=== PATIENT | female | born 1975 | race Caucasian/White ===

== ENCOUNTER 2016-12-28 00:37 | Observation (INO) | payer MEDICARE, OTHER ==
--- NOTE | ~2016-12-28 | DS ---
Discharge Summary [facility] [address] [facility], [place]. [address] NAME: DUSTIN BECKMAN : 77 STATUS : DIS Kena PAT#: [id number] AGE: 41 ADM/REG DATE : 12/28/16 MR#: [id number] REPORT SERV DATE: 12/30/16 DICTATED BY: JANNIE CARPIO DATE: 12/30/16 REPORT STATUS : Draft TRANSCRIBED BY: MODL DATE: 12/30/16 ADMISSION DATE: 12/28/2016 DISCHARGE DATE: 12/30/2016 PRINCIPAL DIAGNOSIS: Chest pain due to acute esophagitis. SECONDARY DIAGNOSES: 1. Type 2 diabetes, uncontrolled. 2. Urinary tract infection due to Staphylococcus saprophyticus. 3. Chronic opioid dependence. 4. Prlqoep-Gxnty-Xxrmd disease. 5. Functional paraplegia. 6. Hypertension. HISTORY OF PRESENT ILLNESS: Please see Dr. Cline's dictation from 12/28/2016. HOSPITAL COURSE: Admitted with chest pain. Given her diabetes, ischemic evaluation was done which was found to be negative. The patient was noted, however, to have a history of esophagitis with an episodic dysphagia. She was treated symptomatically with GI cocktail with improvement in symptoms. She was re-prescribed Carafate to go along with Protonix 40 b.i.d., which she had been on for a long time before changing to Dexilant about a month back. Her opioids were continued, continue Adderall and Xanax, although recommendation was to reduce these various medications particularly being on stimulants and sedatives simultaneously was particularly hazardous, and we recommend that her primary care provider, Avani Olivas, re-evaluate the use of these medicines in the outpatient setting. She will also follow up with Dr. Vasquez as scheduled for followup of here esophagitis. Greater than 30 minutes spent with the patient on discharge planning on the discharge day. LELA/LIVIA Jannie Carpio M.D. / [id number] CC: Colton Montoya M.D.
--- NOTE | ~2016-12-28 | HP ---
History And Physical [id number] [place]. [address] NAME: DUSTIN BECKMAN : 77 STATUS : ADM Kena PAT#: [id number] AGE: 41 ADM/REG DATE : 12/28/16 MR#: [id number] REPORT SERV DATE: 12/28/16 DICTATED BY: HERSON GONZALEZ DATE: 12/28/16 REPORT STATUS : Draft TRANSCRIBED BY: MODL DATE: 12/28/16 DATE OF ADMISSION: 12/28/2016 CHIEF COMPLAINT: Chest pain. Transferred from [facility]. HISTORY OF PRESENT ILLNESS: The patient is a 41-year-old female with past medical history of Rleopju-Mholp-Nxdqo, morbid obesity, achalasia, dysphagia with multiple esophageal dilatations, prior chest pain, seen by Dr. Keenan and Dr. Ruiz, chronic narcotic dependence, and insulin-dependent diabetes type 2, who presented to outside facility with chest pain. The patient reports that symptoms of chest pain became pressure, midsternal earlier today. Symptom of pain was mild to moderate, slightly different than when she usually has her esophageal-type pain, had mild radiation to left side, but not to arm, lasted for multiple hours. The patient has also been recovering from bronchitis, which she has been on Augmentin, then changed to Levaquin as the patient was being treated for UTI also for chronic Douglas, has also been on Macrobid and then changed to Cipro, but has not started Cipro. The patient denies any nausea, vomiting, fevers, but has had difficulty with UTI with hematuria. Douglas was changed on , 12/24, per records. There is nothing that has been making the chest pain better or worse. Symptoms are quite improved currently. The patient's major concern right now is additionally back pain that she has chronically. Additional 10-point review of systems negative for that noted in the HPI. PAST MEDICAL HISTORY: Hypertension, migraines, insulin-dependant diabetes, ulcers, dilatation, spine surgeries, MRSA, ADHD, morbid obesity, Yefhzsa-Uycko-Ppyjg, hiatal hernia, anxiety, depression, chronic tobacco use, still currently using 2 packs per day. PAST SURGICAL HISTORY: Tonsils, spine surgeries, multiple cholecystectomy, bilateral foot surgeries, esophageal dilatations. FAMILY HISTORY: Diabetes, coronary artery disease. SOCIAL HISTORY: Has been ranging from 4 pack per day down as low as 1-pack per day smoker. Currently, 2 pack per day smoker, lives with , on chronic narcotics, wheelchair bound. ALLERGIES: TORADOL, CEPHALOSPORIN, SULFA, PONTOCAINE, CODEINE, DARVOCET, CEPHALEXIN, TETRACYCLINE, DOXYCYCLINE, ERYTHROMYCIN, VANTIN, TRAMADOL, SEROQUEL, MORPHINE, IBUPROFEN, VANCOMYCIN. HOME MEDICATIONS: ProAir, Xanax, Adderall, Abilify, Zyrtec, Plavix, Dexilant, Lofibra, Neurontin, Levemir, insulin, Combivent, Singulair, Bystolic, Paxil, Phenergan, Zantac, Zocor, temazepam, Zanaflex, Topamax. PHYSICAL EXAMINATION: VITAL SIGNS: Blood pressure 118/79, O2 sats 97%, temperature 98.5, pulse 94, respirations 14. GENERAL: Obese, appears older than stated age. Does have facial flushing. History And Physical [address] [address] NAME: DUSTIN BECKMAN : 77 STATUS : ADM Kena PAT#: [id number] AGE: 41 ADM/REG DATE : 12/28/16 MR#: [id number] REPORT SERV DATE: 12/28/16 DICTATED BY: HERSON GONZALEZ DATE: 12/28/16 REPORT STATUS : Draft TRANSCRIBED BY: LIVIA DATE: 12/28/16 HEENT: Head normocephalic, atraumatic. Eyes: No scleral icterus. EOMI. ENT nares patent. Tongue midline. No pharyngeal erythema. NECK: Large neck without JVD. CHEST: Equal chest expansion. RESPIRATORY: Clear to auscultation. No wheezes or rales. CV: Regular rate. No rubs or gallops. Chronic pedal edema in bilateral extremities. Capillary refill less than 2 seconds. No JVD. ABDOMEN: Soft, nontender. Central obesity. Bowel sounds positive. : Douglas. MUSCULOSKELETAL: Does move all extremities, but as per prior, does have right-sided weakness greater than left with chronic venous stasis bilaterally. NEURO: Slightly symmetrical strength, appears equal at this time. Symmetrical vocal leighann. Symmetrical smile. PSYCH: Appropriate mood and affect. SKIN: Warm and dry. Does have facial flushing. LABORATORY DATA: Labs from outside facility, CPK 47, sodium 133, glucose 230, creatinine 0.5. LFTs within normal limits. Bicarb 23, troponin negative. CK-MB 2. WBC 15.7, H and H 12.6 and 38, MCV 84.7, platelets 335. UA moderate leuk esterase with WBCs 10 to 25, 1+ bacteria. X-ray: No cardiopulmonary disease. EKG: Normal sinus rhythm with inferior changes, rate of 99, QTc 449. Inferior changes have also been noted in our prior record with prior records also noted for low voltage QRS. ASSESSMENT AND PLAN: 1. Chest pain. 2. Urinary tract infection with chronic Douglas. 3. Recent bronchitis. 4. Chronic pain. 5. Ympdsju-Xyaqo-Tkvwq. 6. Diabetes type 2. 7. Hypertension. PLAN: 1. For chest pain, stress test. Does have inferior changes, questionable Q-waves, but these have somewhat comparable to prior EKG noted on 05/13/2016. The patient reports the quality of pain is slightly different although slightly atypical for cardiac due to prolongation, but has had a followup with Dr. Keenan and Joseph in the past. We will rule out with troponins which are currently negative, CPK has been within normal limits, repeat troponins and monitor, likely possible post bronchitis type discomfort. We will also provide ICS if required, may require Cardiology for further evaluation. 2. Urinary tract infection with chronic Douglas. Zosyn with prior Pseudomonas positive has been on unfortunately Augmentin for bronchitis and was changed to Levaquin for urinary tract infection 750, then decrease to 500 mg dose, and then placed on Macrobid, and finally was changed to ciprofloxacin, unclear pattern of medication changes, but still has symptoms of hematuria and leukocytosis from outside records. We will confirm and begin Zosyn possible and monitor clinically. 3. Recent bronchitis, treated, on both Augmentin and Levaquin. No signs of acute changes History And Physical [address] [address] NAME: DUSTIN BECKMAN : 77 STATUS : ADM Kena PAT#: [id number] AGE: 41 ADM/REG DATE : 12/28/16 MR#: [id number] REPORT SERV DATE: 12/28/16 DICTATED BY: HERSON GONZALEZ DATE: 12/28/16 REPORT STATUS : Draft TRANSCRIBED BY: LIVIA DATE: 12/28/16 or acute decompensation. 4. Chronic pain. Dilaudid. 5. Jdoerpc-Pdohz-Qmxqt. Continue supportive treatment. 6. Wheelchair dependent. 7. Diabetes type 2. Decrease dose tonight and reassess diabetic insulin needs. 8. Hypertension. Continue medications. Monitor as the patient is normotensive at this time. DDN/LIVIA Herson Gonzalez MD / [id number]
[~2016-12-28 00:37] MED LIST: ABILIFY15 PO; ABILIFY20 MG PO; ADDER10 PO; ADDERALL20 MG PO; ADDERALL30 MG PO; ALOE VESTA TOP; BENADRYL 50 MG50 MG PO; BYSTOLIC10 MG PO; CARASPUDL PO; CLEOCIN300 MG PO; COMBIVENT RESPIM4 GM INH; COZ50 PO; DIL2TAB PO; DIL4TAB PO; DURA75 TOP; EFFEXOR100 MG PO; EFFEXXR75 PO; EXCEDRIN EXTRA1 EACH PO; EXCEDRIN PO; FIORICET PO; FLUCON150 PO; GLUCPH PO; HUMALOG SC; LEVEMFLXPN SC; LEVEMIR SC; LOFIBRA160 MG PO; LYRICA50 PO; LYRICA75 PO; MEP50TAB PO; MYRBETRIQ50 MG PO; NEUR300 PO; NEUR600 PO; NEUR800 PO; NORCO1 TA1 PO; NOVOLOG SC; PAX20 PO; PAXIL30 MG PO; PAXIL40 MG PO; PCET PO; PEP20 PO; PERCOCET1 TA4 PO; POT GLUCONAT595 M1 PO; POTASSIUM GLUCONATE PO; PR25 PO; PROAIR HFA INH; PROTONIX PO; PROZ10 PO; RANITIDINE300 MG PO; RELA5 PO; RESTORIL30 MG PO; SINGULAIR1 PO; TOPAMAX100 PO; TOPXL25 PO; TOPXL50 PO; TRICOR145 PO; VALIUM10 MG PO; VISINE-A EYE AL15 ML OPH; XANAX2 MG PO; ZANAFLEX 4 MG TA4 MG PO; ZANTAC300 MG PO; ZOCOR20 PO; ZOFRAN4 PO; ZYRTEC ALLGY10 MG PO
[2016-12-28] MEDS ORDERED: KAPIDEX30 MG PO (01:16)
[2016-12-28] MEDS ORDERED: PLAVIX PO (01:54)
[2016-12-28 05:04] LABS: BASOPHILS 0.4 %; BASOPHILS ABSOLUTE 0.05 10/3/uL (0.0-0.16); EOSINOPHILS ABSOLUTE 0.35 10/3/uL (0.0-0.53); HEMATOCRIT 38.4 % (36.0-48.0); HEMOGLOBIN 12.6 g/dL (12.0-16.0); IMMATURE GRANULOCYTES 1.1 %; IMMATURE GRANULOCYTES ABSOLUTE 0.13 10/3/uL (0.0-0.11); LYMPHOCYTES 21.3 %; LYMPHOCYTES ABSOLUTE 2.52 10/3/uL (0.67-4.30); MEAN CORPUS HGB CONC 32.8 g/dL (32.0-36.0); MEAN CORPUSCULAR HEMOGLOB 28.5 pg (26.0-34.0); MEAN CORPUSCULAR VOLUME 86.9 fL (80-100); MEAN PLATELET VOLUME 9.8 fL (9.2-13.0); MONOCYTES 5.9 %; NEUTROPHILS 68.3 %; NEUTROPHILS ABSOLUTE 8.06 10/3/uL (2.02-8.40); PLATELET COUNT 362 10/3/uL (150-400); RBC DISTRIBUTION WIDTH 15.8 % (12.0-16.0); RED CELL COUNT 4.42 10/6/uL (4.0-5.6); WHITE BLOOD CELLS 11.8 10/3/uL (4.5-10.5)
[2016-12-28 05:10] LABS: MANUAL DIFF NO %
[2016-12-28 05:23] LABS: A/G RATIO 0.9 (0.7-1.9); ALBUMIN 3.3 G/DL (3.5-5.0); ALKALINE PHOSPHATASE 73 U/L (45-117); CALCIUM, SERUM 8.8 MG/DL (8.5-10.4); CHLORIDE, SERUM 103 MMOL/L (96-112); CO2 (CARBON DIOXIDE) 24 MMOL/L (24-34); CREATININE 0.68 MG/DL (0.55-1.02); GFR AFRICAN AMERICAN 127 ML/MIN (>=60); GFR NON AFRICAN AMERICAN 109 ML/MIN (>=60); GLOBULIN 3.8 G/DL (2.5-4.1); PHOSPHORUS, SERUM 3.1 MG/DL (2.5-4.5); POTASSIUM, SERUM 3.7 MMOL/L (3.5-5.3); SGOT(AST) 46 U/L (5-40); SGPT(ALT) 23 U/L (5-65); SODIUM, SERUM 138 MMOL/L (135-148); TOTAL BILIRUBIN 0.7 MG/DL (0-1.2); TOTAL PROTEIN 7.1 G/DL (6.0-8.5); TROPONIN I <0.02 NG/ML (<0.05)
[2016-12-28 05:24] LABS: BUN (BLOOD UREA NITROGEN) 20 MG/DL (6-23); GLUCOSE, SERUM 195 MG/DL (60-99)
[2016-12-28 06:29] LABS: PROCALCITONIN 0.57 ng/mL (<0.5)
[2016-12-28 09:42] LABS: ASCORBIC ACID (UR NOT ORDER) NEG (NEG); BILIRUBIN, URINE NEGATIVE (NEG); KETONE, URINE NEGATIVE (NEG); LEUKOCYTE ESTERASE(NOT OR MOD (NEG)
[2016-12-28 09:43] LABS: WBC (NOT ORDERED) (RFLEX) > 182 (0-5)
[2016-12-29 12:58] LABS: HEMATOCRIT 35.6 % (36.0-48.0); HEMOGLOBIN 11.3 g/dL (12.0-16.0); MEAN CORPUS HGB CONC 31.7 g/dL (32.0-36.0); MEAN CORPUSCULAR VOLUME 88.1 fL (80-100); MEAN PLATELET VOLUME 9.8 fL (9.2-13.0); PLATELET COUNT 276 10/3/uL (150-400); RBC DISTRIBUTION WIDTH 16.3 % (12.0-16.0); RED CELL COUNT 4.04 10/6/uL (4.0-5.6); WHITE BLOOD CELLS 11.6 10/3/uL (4.5-10.5)
[2016-12-29 13:00] LABS: MANUAL DIFF YES %
[2016-12-29 13:14] LABS: BUN (BLOOD UREA NITROGEN) 18 MG/DL (6-23); CALCIUM, SERUM 8.4 MG/DL (8.5-10.4); CHLORIDE, SERUM 109 MMOL/L (96-112); CO2 (CARBON DIOXIDE) 21 MMOL/L (24-34); CREATININE 0.58 MG/DL (0.55-1.02); GFR AFRICAN AMERICAN 134 ML/MIN (>=60); GFR NON AFRICAN AMERICAN 115 ML/MIN (>=60); GLUCOSE, SERUM 233 MG/DL (60-99); SODIUM, SERUM 141 MMOL/L (135-148)
[2016-12-29 13:18] LABS: POTASSIUM, SERUM 4.5 MMOL/L (3.5-5.3)
[2016-12-29 13:27] LABS: BAND NEUTROPHILS 10 %; EOSINOPHILS 3 %; EOSINOPHILS ABSOLUTE (CALC) 0.35 10/3/uL (0.0-0.53); HYPOCHROMIA 1+ (3-10/OIF) (0-2/OIF); IMMATURE GRANS ABSOLUTE (CALC) 0.23 10/3/uL (0.0-0.11); LYMPHOCYTES 16 %; LYMPHOCYTES ABSOLUTE (CALC) 1.86 10/3/uL (0.67-4.30); METAMYELOCYTES 2 %; MONOCYTES 6 %; NEUTROPHILS ABSOLUTE (CALC) 8.47 10/3/uL (2.02-8.40); PLATELET ESTIMATE ADQ (ADEQUATE); SEGMENTED NEUTROPHIL (0) 63 %; TOTAL NUCLEATED CELLS 100
[2016-12-30 12:44] LABS: BASOPHILS 0.4 %; BASOPHILS ABSOLUTE 0.05 10/3/uL (0.0-0.16); EOSINOPHILS 2.9 %; EOSINOPHILS ABSOLUTE 0.33 10/3/uL (0.0-0.53); HEMATOCRIT 33.8 % (36.0-48.0); IMMATURE GRANULOCYTES 1.5 %; IMMATURE GRANULOCYTES ABSOLUTE 0.17 10/3/uL (0.0-0.11); LYMPHOCYTES ABSOLUTE 2.04 10/3/uL (0.67-4.30); MEAN CORPUS HGB CONC 32.5 g/dL (32.0-36.0); MEAN CORPUSCULAR HEMOGLOB 28.7 pg (26.0-34.0); MEAN CORPUSCULAR VOLUME 88.3 fL (80-100); MEAN PLATELET VOLUME 9.6 fL (9.2-13.0); MONOCYTES 5.7 %; MONOCYTES ABSOLUTE 0.65 10/3/uL (0.21-1.20); NEUTROPHILS 71.5 %; NEUTROPHILS ABSOLUTE 8.07 10/3/uL (2.02-8.40); PLATELET COUNT 305 10/3/uL (150-400); RED CELL COUNT 3.83 10/6/uL (4.0-5.6); WHITE BLOOD CELLS 11.3 10/3/uL (4.5-10.5)
[2016-12-30 12:47] LABS: MANUAL DIFF NO %
[2016-12-30 12:57] LABS: CALCIUM, SERUM 8.6 MG/DL (8.5-10.4); CHLORIDE, SERUM 107 MMOL/L (96-112); CO2 (CARBON DIOXIDE) 22 MMOL/L (24-34); CREATININE 0.56 MG/DL (0.55-1.02); GFR AFRICAN AMERICAN 135 ML/MIN (>=60); GFR NON AFRICAN AMERICAN 117 ML/MIN (>=60); GLUCOSE, SERUM 210 MG/DL (60-99); PHOSPHORUS, SERUM 3.1 MG/DL (2.5-4.5); SODIUM, SERUM 139 MMOL/L (135-148)
[2016-12-30 12:58] LABS: BUN (BLOOD UREA NITROGEN) 10 MG/DL (6-23); POTASSIUM, SERUM 4.5 MMOL/L (3.5-5.3)
[2016-12-30 13:22] LABS: PROCALCITONIN 0.39 ng/mL (<0.5)
[2016-12-30] MEDS ORDERED: LEVEMIR SC (15:10)
[2016-12-30] MEDS ORDERED: EMLA PO (15:15)
[2016-12-30] MEDS ORDERED: LIDEX PO (15:15)
[2016-12-30] MEDS ORDERED: SUCR PO (15:16)
[2016-12-30] MEDS ORDERED: PROTONIX PO (15:17)
[2017-05-03] MEDS ORDERED: FISH-EPA1000 MG PO (22:14)
[2017-05-03] MEDS ORDERED: PROTONIX PO (22:14)
[2017-05-03] MEDS ORDERED: BYSTOLIC10 MG PO (22:15)
[2017-05-03] MEDS ORDERED: ABILIFY20 MG PO (22:15)
[2017-05-03] MEDS ORDERED: ZANTAC300 MG PO (22:15)
[2017-05-03] MEDS ORDERED: SINGULAIR1 PO (22:15)
[2017-05-03] MEDS ORDERED: PLAVIX PO (22:15)
[2017-05-03] MEDS ORDERED: PAXIL30 MG PO (22:15)
[2017-05-03] MEDS ORDERED: ADDERALL30 MG PO (22:16)
[2017-05-03] MEDS ORDERED: RESTORIL30 MG PO (22:16)
[2017-05-03] MEDS ORDERED: ZOCOR20 PO (22:16)
[2017-05-03] MEDS ORDERED: LOFIB160 PO (22:16)
[2017-05-03] MEDS ORDERED: NEUR800 PO (22:16)
[2017-05-03] MEDS ORDERED: TOPAMAX100 PO (22:17)
[2017-05-03] MEDS ORDERED: XANAX2 MG PO (22:17)
[2017-05-03] MEDS ORDERED: HUMALOG SC (22:17)
[2017-05-03] MEDS ORDERED: POTASSIUM GLUC PO (22:17)
[2017-05-03] MEDS ORDERED: LEVEMIR SC (22:18)
[2017-05-03] MEDS ORDERED: MAXALTODT1 PO (22:18)
[2017-05-03] MEDS ORDERED: DIFLUCAN50 MG PO (22:18)
[2017-05-03] MEDS ORDERED: FIORICET 50-301 EACH PO (22:19)
[2017-05-03] MEDS ORDERED: PR25 PO (22:19)
[2017-05-03] MEDS ORDERED: LEVAQUIN750 MG PO (22:19)
[2017-05-03] MEDS ORDERED: VITD PO (23:32)
[2017-05-10] MEDS ORDERED: OXYCOD PO (12:58)
== END 2016-12-30 15:59 | disposition home or self-care (01) ==
LOC: CDU1 00:37
PROVIDERS: Internal Medicine; Nurse Practitioner
DX: K20.9 Esophagitis, unspecified (principal); N39.0 Urinary tract infection, site not specified; B95.7 Other staphylococcus as the cause of diseases classified elsewhere; J40 Bronchitis, not specified as acute or chronic; G89.29 Other chronic pain; F44.4 Conversion disorder with motor symptom or deficit; E11.40 Type 2 diabetes mellitus with diabetic neuropathy, unspecified; E78.00 Pure hypercholesterolemia, unspecified; J45.909 Unspecified asthma, uncomplicated; J44.9 Chronic obstructive pulmonary disease, unspecified; M19.90 Unspecified osteoarthritis, unspecified site; M79.7 Fibromyalgia; K21.9 Gastro-esophageal reflux disease without esophagitis; F41.9 Anxiety disorder, unspecified; F32.9 Major depressive disorder, single episode, unspecified; D64.9 Anemia, unspecified; I10 Essential (primary) hypertension; Z88.1 Allergy status to other antibiotic agents; Z88.2 Allergy status to sulfonamides; Z88.5 Allergy status to narcotic agent; Z88.8 Allergy status to other drugs, medicaments and biological substances; Z79.4 Long term (current) use of insulin; Z79.899 Other long term (current) drug therapy; Z90.89 Acquired absence of other organs; Z90.49 Acquired absence of other specified parts of digestive tract; Z87.442 Personal history of urinary calculi; Z98.1 Arthrodesis status; Z98.890 Other specified postprocedural states
CPT/HCPCS: 71020; 78452; 80048; 80053; 81001; 82962; 83036; 83735; 84100; 84145; 84443; 84484; 85025; 87040; 87086; 87449; 93005; 93017; 93970; 96372; 96374; 96375; 96376; A9270-GY; A9502; G0378; J0153; J1170; J2543; J2550

== ENCOUNTER 2016-12-31 21:30 | Emergency (ER) | payer MEDICARE ==
[~2016-12-31 21:30] MED LIST changes: +EMLA PO; +KAPIDEX30 MG PO; +LIDEX PO; +PLAVIX PO; +SUCR PO
[2017-05-03] MEDS ORDERED: FISH-EPA1000 MG PO (22:14)
[2017-05-03] MEDS ORDERED: PROTONIX PO (22:14)
[2017-05-03] MEDS ORDERED: ABILIFY20 MG PO (22:15)
[2017-05-03] MEDS ORDERED: SINGULAIR1 PO (22:15)
[2017-05-03] MEDS ORDERED: ZANTAC300 MG PO (22:15)
[2017-05-03] MEDS ORDERED: PLAVIX PO (22:15)
[2017-05-03] MEDS ORDERED: PAXIL30 MG PO (22:15)
[2017-05-03] MEDS ORDERED: BYSTOLIC10 MG PO (22:15)
[2017-05-03] MEDS ORDERED: NEUR800 PO (22:16)
[2017-05-03] MEDS ORDERED: ZOCOR20 PO (22:16)
[2017-05-03] MEDS ORDERED: RESTORIL30 MG PO (22:16)
[2017-05-03] MEDS ORDERED: ADDERALL30 MG PO (22:16)
[2017-05-03] MEDS ORDERED: LOFIB160 PO (22:16)
[2017-05-03] MEDS ORDERED: XANAX2 MG PO (22:17)
[2017-05-03] MEDS ORDERED: POTASSIUM GLUC PO (22:17)
[2017-05-03] MEDS ORDERED: TOPAMAX100 PO (22:17)
[2017-05-03] MEDS ORDERED: HUMALOG SC (22:17)
[2017-05-03] MEDS ORDERED: DIFLUCAN50 MG PO (22:18)
[2017-05-03] MEDS ORDERED: LEVEMIR SC (22:18)
[2017-05-03] MEDS ORDERED: MAXALTODT1 PO (22:18)
[2017-05-03] MEDS ORDERED: PR25 PO (22:19)
[2017-05-03] MEDS ORDERED: FIORICET 50-301 EACH PO (22:19)
[2017-05-03] MEDS ORDERED: LEVAQUIN750 MG PO (22:19)
[2017-05-03] MEDS ORDERED: VITD PO (23:32)
[2017-05-10] MEDS ORDERED: OXYCOD PO (12:58)
== END 2016-12-31 23:10 | disposition left against medical advice (07) ==
LOC: ER 21:30
DX: Z53.21 Procedure and treatment not carried out due to patient leaving prior to being seen by health care provider (principal)
CPT/HCPCS: 80053; 81001; 83690; 84703; 85025

== ENCOUNTER 2017-01-14 02:32 | Inpatient (IN) | payer MEDICARE ==
--- NOTE | ~2017-01-14 | HP ---
History And Physical [address] [place]. [address] NAME: DUSTIN BECKMAN : 77 STATUS : ADM Kena PAT#: [id number] AGE: 41 ADM/REG DATE : 01/14/17 MR#: [id number] REPORT SERV DATE: 01/14/17 DICTATED BY: ADAM SMIHT DATE: 01/14/17 REPORT STATUS : Draft TRANSCRIBED BY: MODL DATE: 01/14/17 DATE OF ADMISSION: 01/14/2017 CHIEF COMPLAINT: I have accepted this patient in transfer from [facility] after speaking with Dr. Caleb Devi there. HISTORY OF PRESENT ILLNESS: Briefly, this is a 41-year-old female, who presented to the emergency room there with redness in both lower extremities. The patient had allergies to almost all antibiotics except daptomycin and had to be seen by an Infectious Disease specialist for that. They were requesting transfer for higher level of care. At the time of my evaluation here, the patient denied any chest pain, palpitations, or orthopnea. She had no cough, hemoptysis, night sweats, or weight loss. She has not had any recent falls or loss of consciousness. No history of fevers, chills, nausea, vomiting, or diarrhea. No history of hematemesis, hematochezia, or hematuria. According to her, about her redness in the lower extremities started about 10 days ago when she saw an unknown doctor who gave her ciprofloxacin. She took it for a few days and had no benefit in fact her leg was getting worse, so she saw her primary doctor who prescribed levofloxacin 750 mg. Again, this did not help and she went to the emergency room again where she was advised to take IV antibiotics. Unfortunately, they could not establish venous access and due to her allergies to almost every known antibiotics we were called to accept the patient in transfer. PAST MEDICAL HISTORY: Significant for insulin-dependent diabetes mellitus. Allergies to all antibiotics and pain medications. History of bipolar disorder, irritable bowel syndrome, Charcot Shannan tooth disease, history of DVT in the right lower extremity in the past. She has obesity, chronic indwelling catheter, functional paraplegia, hypertension, numerous urinary tract infection with Staphylococcus saprophyticus. SOCIAL HISTORY: She has about 50- to 93-ozqg-aorm history of smoking, continues to do so. She denied alcohol use or recreational drug use. She is currently disabled. FAMILY HISTORY: Noncontributory. MEDICATIONS: Her medications at home were reviewed by me in the chart today and reordered by me. REVIEW OF SYSTEMS: As in history of present illness. All other systems were reviewed in detail and are quite unremarkable. PHYSICAL EXAMINATION: GENERAL: This is a pleasant 41-year-old, not in any acute distress at this time. HEENT: Her head is atraumatic and normocephalic. She is alert, awake, oriented to time, place, and person. Pupils are equal, reacting to light and accommodating. External ocular History And Physical [address] [address] NAME: DUSTIN BECKMAN : 77 STATUS : ADM Kena PAT#: [id number] AGE: 41 ADM/REG DATE : 01/14/17 MR#: [id number] REPORT SERV DATE: 01/14/17 DICTATED BY: ADAM SMITH DATE: 01/14/17 REPORT STATUS : Draft TRANSCRIBED BY: LIVIA DATE: 01/14/17 muscles are intact. Membranes are moist and pink. Sclerae are nonicteric. NECK: Supple with no jugular venous distention, lymphadenopathy, or thyromegaly. LUNGS: Clear to auscultation with no wheezes, rubs, or crackles. HEART: Heart sounds were regular with no murmurs, rubs, or gallops. ABDOMEN: Soft and nontender. Bowel sounds are present. EXTREMITIES: No cyanosis, clubbing, or edema. Both her lower extremities especially the feet showed redness and swelling on the dorsum. There is redness in the left leg as well. There is also a small ulcerated area without any discharge in the foot as well. NEUROLOGIC: Grossly intact. No focal sensory or motor deficits. Higher functions appeared intact. Gait was not examined. VITAL SIGNS: Her temperature today was 99 degrees Fahrenheit, heart rate 103, respirations 20 a minute, and blood pressure was 147/71, this was at [place] before her transfer. Here, her temperature was 98.5, pulse 90, respirations 19 a minute, and blood pressure was 124/67. Oxygen saturations were 97%, breathing 2 L of oxygen via nasal cannula. LABORATORY DATA: All other labs and other data which accompanied the patient from there was reviewed by me today. IMPRESSION: 1. Bilateral lower extremity cellulitis. 2. Multiple allergies to medications. 3. Insulin-dependent diabetes mellitus. 4. Essential hypertension. 5. Bipolar disorder. 6. Irritable bowel syndrome. 7. Dohclee-Jfjzw-Icxyj disease. 8. History of DVT in the right lower extremity. 9. Obesity. 10.Chronic indwelling catheter. 11.Functional paraplegia. PLAN: We will admit Ms Beckman to the Hospitalist Service with telemetry for a 24-hour observation period. After cultures are drawn, we will start her on daptomycin and give her the first dose and consult Infectious Disease, who has seen her in the past to evaluate and offer recommendations and treatment. We will start her on NovoLog insulin given subcutaneously per sliding scale for blood sugar control and check her A1c. We will follow chemistry, CBC here along with electrolytes and replace as needed. She will also be placed on unfractionated heparin for DVT prophylaxis while here. Meanwhile, we will continue all her other home medications and treatments. Again for pain, she is allergic to almost all pain medication known except Dilaudid and Stadol which she is requesting. I have discussed the above plans with the patient. Her questions were answered, and she is agreeable to the above recommendations. Hospitalist Service will be following her during her stay here. History And Physical [address] [address] NAME: DUSTIN BECKMAN : 77 STATUS : ADM Kena PAT#: [id number] AGE: 41 ADM/REG DATE : 01/14/17 MR#: [id number] REPORT SERV DATE: 01/14/17 DICTATED BY: ADAM SMITH DATE: 01/14/17 REPORT STATUS : Draft TRANSCRIBED BY: LIVIA DATE: 01/14/17 /LIVIA Adam Smith M.D. / [id number] CC: Colton Barney NP
--- NOTE | ~2017-01-14 | DS ---
Discharge Summary [facility] [address] [place]. [address] NAME: DUSTIN BECKMAN : 77 STATUS : DIS IN PAT#: [id number] AGE: 41 ADM/REG DATE : 01/14/17 MR#: [id number] REPORT SERV DATE: 01/20/17 DICTATED BY: JANNIE CARPIO DATE: 01/19/17 REPORT STATUS : Draft TRANSCRIBED BY: LIVIA DATE: 01/19/17 ADMISSION DATE: 01/14/2017 DISCHARGE DATE: 01/19/2017 PRINCIPAL DIAGNOSIS: Right lower extremity cellulitis. SECONDARY DIAGNOSIS: Fjggggs-Eyvzd-Ueiyl disease with chronic peripheral neuropathy, type 2 diabetes, obesity with sleep apnea, hypertension, chronic pain disorder with history of attention deficit hyperactivity disorder and bipolar. ILLNESS: Please see Dr. Rivera's dictation, 01/14/2017. HOSPITAL COURSE: Please see Dr. Salguero's 01/18/2017. Subsequent hospital course, the patient completed her daptomycin. Her pain medications were changed to p.o. and we reviewed her medications at discharge. The patient was on both stimulants and sedatives, which should only be given with extreme caution. The patient particularly with addition of opiates due to the pain from her cellulitis, she was prescribed oxycodone at discharge and recommended to reduce her Xanax and her Adderall both by 50% and discuss this with Dr. Melgar. She could come off both those medications, it would be optimal for her. Otherwise, her Restoril was discontinued. Continue MiraLAX, Levemir 50 at bedtime, Topamax, Zocor, Lofibra, Abilify, Pepcid, Paxil, Bystolic, Singulair, Plavix, Zanaflex. She will follow up with Dr. Avani Olivas in one to two weeks and Dr. Melgar as previously scheduled. Greater than 30 minutes were spent on the care of this patient on discharge planning on discharge day. LELA/LIVIA Jannie Carpio M.D. / [id number] CC: Jannie Carpio M.D. MD Joseph Corona MD
--- NOTE | ~2017-01-14 | CN ---
Consultation Report [facility] [address] [place]. [address] NAME: DUSTIN BECKMAN : 77 STATUS : ADM Kena PAT#: [id number] AGE: 41 ADM/REG DATE : 01/14/17 MR#: [id number] REPORT SERV DATE: 01/14/17 DICTATED BY: GENARO ALBERTO DATE: 01/14/17 REPORT STATUS : Draft TRANSCRIBED BY: MODLuis Felipe DATE: 01/14/17 INFECTIOUS DISEASE CONSULTATION DATE OF CONSULTATION: REASON FOR CONSULT: Multiple antibiotic allergies and leg cellulitis. HISTORY OF PRESENT ILLNESS: A 41 years old lady with past medical history of Charcot-Shannan- Tooth disease; obesity; achalasia, status post esophageal dilatation; chronic pain; diabetes, who was transferred from [facility] because she cannot take oral antibiotics and I could not start an IV line. She states that she never had leg cellulitis, but she has chronic feet pain. She is electric-chair bound. She does transfer only. She had prior surgeries on her feet. For about 10 days, she had some erythema mostly on the right foot and worse pain than usual. She had no real fever. She has repeated trauma to her feet. Somebody gave her a course of Cipro and then a course of Levaquin that apparently did not help. ALLERGIES: SHE REPORTS VARIOUS ANTIBIOTIC ALLERGIES. SHE STATES THAT CEPHALEXIN, VANTIN, AND SULFA CAUSE RASH AND VANCOMYCIN AND DOXYCYCLINE CAUSED THROAT SWELLING. SHE TOOK DAPTOMYCIN IN THE PAST. SHE REPORTED PENICILLIN ALLERGY, BUT SHE WAS JUST TREATED LAST MONTH WITH ZOSYN HERE AT [facility]. PAST MEDICAL HISTORY: She also has past medical history of hypertension, migraines. PAST SURGICAL HISTORY: Tonsillectomy, spine surgeries, cholecystectomy. SOCIAL HISTORY: Apparently, she is a smoker. She is . FAMILY HISTORY: Diabetes and heart disease. MEDICATIONS ON ADMISSION: Albuterol, Xanax as needed, Adderall, Abilify, Zyrtec, Plavix, fenofibrate, gabapentin, insulin, Combivent, Singulair, nebivolol, Protonix, Paxil, Zantac, Zocor, Carafate, Restoril, Zanaflex, Topamax, and potassium. PHYSICAL EXAMINATION: GENERAL: On exam, she is alert, awake, very obese. Her face is red and kole. HEART: Regular rhythm. ABDOMEN: Very obese, compressible. : Right upper buttock or hip with a couple of bruises. Groins with redness mostly on the left. EXTREMITIES: Both feet are red, more on the right than the left. Right great toe with a tip scab. Mild redness on the right lower leg. Both feet are very sensitive to touch. VITAL SIGNS: She has been afebrile here. Consultation Report [address] [place]. [address] NAME: DUSTIN BECKMAN : 77 STATUS : ADM Kena PAT#: [id number] AGE: 41 ADM/REG DATE : 01/14/17 MR#: [id number] REPORT SERV DATE: 01/14/17 DICTATED BY: GENARO ALBERTO DATE: 01/14/17 REPORT STATUS : Draft TRANSCRIBED BY: LIVIA DATE: 01/14/17 LAB WORK: Procalcitonin 0.2, creatinine 0.4, WBC 8, lactic acid 1.0. Liver enzymes within normal limits. Hemoglobin 11, platelets 327. Glucose high. ASSESSMENT/PLAN: 1. Right foot erythema, mild warmth, and right great toe scab. 2. Chronic bilateral feet pain. 3. She is bound to an electric chair. She does not walk. 4. Dknfaly-Mbdxk-Zjkno disease with prior foot surgeries. 5. Inguinal skin candidiasis. 6. She reports allergies as listed above. She does have some right foot erythema and warmth to touch, but she also has a right face erythema. She states she was not exposed to sun on her feet. She has no fever, no leukocytosis, no elevated procalcitonin. It is not really unclear if this is truly infectious cellulitis. She was started on daptomycin this morning and we will see if there is any response to that. I asked her to keep the legs elevated and to have glycemic control. ID followup intermittently. MARIA ELENA/LIVIA Genaro Alberto M.D. / [id number] CC: Colton Barney RUTH
--- NOTE | ~2017-01-14 | IDS ---
Interim Discharge Summary [facility] [address] [place]. [address] NAME: DUSTIN BECKMAN : 77 STATUS : ADM IN PAT#: [id number] AGE: 41 ADM/REG DATE : 01/14/17 MR#: [id number] REPORT SERV DATE: 01/17/17 DICTATED BY: NESTOR SALGUERO DATE: 01/17/17 REPORT STATUS : Draft TRANSCRIBED BY: MODL DATE: 01/17/17 ADMISSION DATE: 01/14/2017 DISCHARGE DATE: CONSULTANTS: Dr. Genaro Campbell, Infectious Disease. PROBLEM LIST: 1. 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 2. Mild bilateral foot cellulitis. 3. Vhnxsvi-Jiutc-Xcjry disease with chronic severe neuropathy and near paraplegia of her legs and neurogenic bladder. 4. Metabolic encephalopathy related to sedating medication combination. 5. Bipolar disorder with a history of attention deficit hyperactivity disorder and generalized anxiety. 6. Obesity with body mass index 50 with suspected obstructive sleep apnea. 7. Neurogenic bladder with chronic Douglas catheter with yeast colonization. 8. Many medication intolerances. 9. Diabetes mellitus type 2 with A1c 9.3%. 10.History of esophageal stricture. 11.Chronic pain involving spine, peripheral neuropathy, and headaches. 12.History of hypertension. 13.History of multiple spinal infections. HISTORY: This patient has Przxejh-Gaslv-Bihyk disease with chronic peripheral neuropathy and neurogenic bladder and she is nearly paraplegic. She can move her legs very little but they do not bear much weight when she gets out of a chair or out of bed. She will lean on something in front of her and then swing her hips around to get herself into a chair with essentially no weightbearing by the legs. She has had recent falls traumatizing her feet. She had gone to the ER at [facility], [place] complaining of 10 days of bilateral foot pain. She states she had a fever early on of 101 but not since then. PCP had given her Cipro, then Levaquin, no improvement. When she went to [facility], [place], she had no IV access and was sent here, had a PICC line placed. The patient had no increased heat or induration in either foot. She has obesity with chronic stasis changes. Minimal erythema in the distal feet. She had some scabbing of toes, some bruising of her distal foot, especially on the left side. X-rays reviewed with Radiology. They have been taken at an outside facility, [facility]. CT revealed possible mild cellulitis, no fractures, no osteomyelitis. Plain films; no fracture, no erosions, just some osteoporosis. The patient has a normal white count. She has had normal temperature. There has been no elevation of the procalcitonin. She has hypersensitivity to light palpation of the feet on either side. I think it is likely that her bilateral foot pain is a combination of her underlying neuropathy plus the recent falls and trauma to the feet and some mild cellulitis. Interim Discharge Summary [place] [id number] [facility] [place]. [address] NAME: DUSTIN BECKMAN : 77 STATUS : ADM IN [facility]#: [id number] AGE: 41 ADM/REG DATE : 01/14/17 MR#: [id number] REPORT SERV DATE: 01/17/17 DICTATED BY: NESTOR SALGUERO DATE: 01/17/17 REPORT STATUS : Draft TRANSCRIBED BY: LIVIA DATE: 01/17/17 Dr. Campbell has seen her, and he felt she might benefit from a very few days of daptomycin. She has so many allergies, it is difficult to find medicines that she could even take. Blood cultures, no growth. Urine cultures with Desiree albicans. Changed out her Douglas catheter. She states she is not able to do self cath and her 's never been trained. He did not seem interested in learning it either, and was asleep through almost all of my visits except the very first one. The patient was asking for stronger pain medicines. She admits that she used to go to pain management, but she does not have a pain management physician now. She states there is an appointment pending. She states in the past she used to be on fentanyl patch and oral Dilaudid. I told her right upfront that I was very concerned about the combination of her medications being a high risk for over-sedation and respiratory insufficiency, this includes Xanax 2 mg t.i.d. p.r.n. plus Restoril 30 mg at bedtime scheduled, Zanaflex 6 mg t.i.d. scheduled, Topamax 300 mg at bedtime scheduled, Abilify 20 mg at bedtime scheduled, Phenergan 50 mg that she takes four times a day, although it is supposed to be p.r.n. She is also on Paxil 60 mg every morning and Adderall 30 mg twice a day. She states that these medications have been given to her specifically by her psychiatrist, Dr. Evens Melgar, and she was very reluctant to have any adjustment of this. I told her that we had to be extremely cautious with adding any opiates. She states in the past when she was on fentanyl patches and Dilaudid pills, she tapered herself off. So, we started with Roxicodone orally as a p.r.n. for moderate pain and Dilaudid IV for more intense pain. With this, the patient was noted to be overly sedated. It was difficult for nursing to wake her up. I talked to her about that. We stopped the Dilaudid completely. She still continued to be somnolent with difficulty waking her up in the evenings, as well reducing the dose of her Roxicodone. She was somewhat reluctant to have this happen. She wanted me to take away her Restoril or Xanax instead, but I told her that benzo withdrawal was not something that I was interested in risking. I would cut her Restoril out though. We had to increase her insulins here as well. Bilateral venous Doppler shows no evidence of deep vein thrombosis in either leg. RSG/MODL Nestor Salguero M.D. / [id number] CC: Colton Barney RUTH
[2017-01-14 06:49] LABS: BASOPHILS 0.5 %; BASOPHILS ABSOLUTE 0.04 10/3/uL (0.0-0.16); EOSINOPHILS 5.1 %; EOSINOPHILS ABSOLUTE 0.42 10/3/uL (0.0-0.53); HEMATOCRIT 33.9 % (36.0-48.0); HEMOGLOBIN 11.1 g/dL (12.0-16.0); IMMATURE GRANULOCYTES 0.8 %; IMMATURE GRANULOCYTES ABSOLUTE 0.07 10/3/uL (0.0-0.11); LYMPHOCYTES 21.5 %; LYMPHOCYTES ABSOLUTE 1.77 10/3/uL (0.67-4.30); MEAN CORPUS HGB CONC 32.7 g/dL (32.0-36.0); MEAN PLATELET VOLUME 9.4 fL (9.2-13.0); MONOCYTES 4.8 %; NEUTROPHILS 67.3 %; NEUTROPHILS ABSOLUTE 5.55 10/3/uL (2.02-8.40); PLATELET COUNT 327 10/3/uL (150-400); RBC DISTRIBUTION WIDTH 15.5 % (12.0-16.0); RED CELL COUNT 3.96 10/6/uL (4.0-5.6); WHITE BLOOD CELLS 8.3 10/3/uL (4.5-10.5)
[2017-01-14 06:50] LABS: MANUAL DIFF NO %; MEAN CORPUSCULAR VOLUME 85.6 fL (80-100)
[2017-01-14 07:03] LABS: ALBUMIN 3.3 G/DL (3.5-5.0); BUN (BLOOD UREA NITROGEN) 9 MG/DL (6-23); CALCIUM, SERUM 8.8 MG/DL (8.5-10.4); CHLORIDE, SERUM 106 MMOL/L (96-112); CO2 (CARBON DIOXIDE) 22 MMOL/L (24-34); CREATININE 0.48 MG/DL (0.55-1.02); GFR AFRICAN AMERICAN 142 ML/MIN (>=60); GFR NON AFRICAN AMERICAN 123 ML/MIN (>=60); GLUCOSE, SERUM 192 MG/DL (60-99); PHOSPHORUS, SERUM 3.5 MG/DL (2.5-4.5); POTASSIUM, SERUM 3.5 MMOL/L (3.5-5.3); SGOT(AST) 29 U/L (5-40); SGPT(ALT) 24 U/L (5-65); SODIUM, SERUM 141 MMOL/L (135-148); TOTAL BILIRUBIN 0.9 MG/DL (0-1.2); TOTAL PROTEIN 6.3 G/DL (6.0-8.5)
[2017-01-14 07:04] LABS: A/G RATIO 1.1 (0.7-1.9); ALKALINE PHOSPHATASE 51 U/L (45-117)
[2017-01-14 07:43] LABS: PROCALCITONIN 0.24 ng/mL (<0.5)
[2017-01-14] MEDS ORDERED: MIRALAX POWDER1 PKT PO (12:20)
[2017-01-15 08:37] LABS: HEMATOCRIT 36.7 % (36.0-48.0); HEMOGLOBIN 11.9 g/dL (12.0-16.0); MEAN CORPUS HGB CONC 32.4 g/dL (32.0-36.0); PLATELET COUNT 336 10/3/uL (150-400); RBC DISTRIBUTION WIDTH 15.5 % (12.0-16.0); RED CELL COUNT 4.11 10/6/uL (4.0-5.6); WHITE BLOOD CELLS 6.8 10/3/uL (4.5-10.5)
[2017-01-15 08:38] LABS: MANUAL DIFF YES %; MEAN CORPUSCULAR VOLUME 89.3 fL (80-100)
[2017-01-15 08:45] LABS: BUN (BLOOD UREA NITROGEN) 11 MG/DL (6-23); CALCIUM, SERUM 8.8 MG/DL (8.5-10.4); CHLORIDE, SERUM 108 MMOL/L (96-112); CO2 (CARBON DIOXIDE) 24 MMOL/L (24-34); CREATININE 0.56 MG/DL (0.55-1.02); GFR AFRICAN AMERICAN 135 ML/MIN (>=60); GFR NON AFRICAN AMERICAN 117 ML/MIN (>=60); GLUCOSE, SERUM 210 MG/DL (60-99); SODIUM, SERUM 141 MMOL/L (135-148)
[2017-01-15 08:46] LABS: C-REACTIVE PROTEIN 37.3 MG/L (<8.0); POTASSIUM, SERUM 4.1 MMOL/L (3.5-5.3)
[2017-01-15 09:02] LABS: BAND NEUTROPHILS 8 %; EOSINOPHILS 2 %; EOSINOPHILS ABSOLUTE (CALC) 0.14 10/3/uL (0.0-0.53); LYMPHOCYTES 29 %; LYMPHOCYTES ABSOLUTE (CALC) 1.97 10/3/uL (0.67-4.30); MONOCYTES 4 %; MONOCYTES ABSOLUTE (CALC) 0.27 10/3/uL (0.21-1.20); NEUTROPHILS ABSOLUTE (CALC) 4.42 10/3/uL (2.02-8.40); PLATELET ESTIMATE ADQ (ADEQUATE); RBC MORPHOLOGY NORM (NORMAL); SEGMENTED NEUTROPHIL (0) 57 %; TOTAL NUCLEATED CELLS 100
[2017-01-15 09:14] LABS: ASCORBIC ACID (UR NOT ORDER) NEG (NEG); BILIRUBIN, URINE NEGATIVE (NEG); KETONE, URINE NEGATIVE (NEG); LEUKOCYTE ESTERASE(NOT OR LARGE (NEG); WBC (NOT ORDERED) (RFLEX) 119 (0-5)
[2017-01-15 09:37] LABS: SED RATE 25 MM/HR (0-20)
[2017-01-16 08:50] LABS: BUN (BLOOD UREA NITROGEN) 12 MG/DL (6-23); CALCIUM, SERUM 8.3 MG/DL (8.5-10.4); CHLORIDE, SERUM 107 MMOL/L (96-112); CO2 (CARBON DIOXIDE) 24 MMOL/L (24-34); CREATININE 0.53 MG/DL (0.55-1.02); GFR AFRICAN AMERICAN 138 ML/MIN (>=60); GFR NON AFRICAN AMERICAN 119 ML/MIN (>=60); GLUCOSE, SERUM 189 MG/DL (60-99); POTASSIUM, SERUM 4.2 MMOL/L (3.5-5.3); SODIUM, SERUM 142 MMOL/L (135-148)
[2017-01-16 10:17] LABS: BASOPHILS 0.5 %; BASOPHILS ABSOLUTE 0.04 10/3/uL (0.0-0.16); EOSINOPHILS 4.6 %; EOSINOPHILS ABSOLUTE 0.37 10/3/uL (0.0-0.53); HEMATOCRIT 34.5 % (36.0-48.0); IMMATURE GRANULOCYTES ABSOLUTE 0.08 10/3/uL (0.0-0.11); LYMPHOCYTES 25.7 %; LYMPHOCYTES ABSOLUTE 2.09 10/3/uL (0.67-4.30); MEAN CORPUS HGB CONC 31.9 g/dL (32.0-36.0); MEAN CORPUSCULAR HEMOGLOB 28.4 pg (26.0-34.0); MEAN CORPUSCULAR VOLUME 89.1 fL (80-100); MEAN PLATELET VOLUME 9.4 fL (9.2-13.0); MONOCYTES 5.4 %; MONOCYTES ABSOLUTE 0.44 10/3/uL (0.21-1.20); NEUTROPHILS 62.8 %; NEUTROPHILS ABSOLUTE 5.11 10/3/uL (2.02-8.40); PLATELET COUNT 323 10/3/uL (150-400); RBC DISTRIBUTION WIDTH 15.4 % (12.0-16.0); RED CELL COUNT 3.87 10/6/uL (4.0-5.6); WHITE BLOOD CELLS 8.1 10/3/uL (4.5-10.5)
[2017-01-16 10:18] LABS: MANUAL DIFF NO %
[2017-01-16 10:59] LABS: ASCORBIC ACID (UR NOT ORDER) NEG (NEG); BILIRUBIN, URINE NEGATIVE (NEG); KETONE, URINE NEGATIVE (NEG); LEUKOCYTE ESTERASE(NOT OR LARGE (NEG); WBC (NOT ORDERED) (RFLEX) 61 (0-5)
[2017-01-18 15:17] LABS: BASOPHILS 0.5 %; BASOPHILS ABSOLUTE 0.04 10/3/uL (0.0-0.16); EOSINOPHILS ABSOLUTE 0.42 10/3/uL (0.0-0.53); HEMATOCRIT 35.1 % (36.0-48.0); HEMOGLOBIN 11.4 g/dL (12.0-16.0); IMMATURE GRANULOCYTES 1.2 %; LYMPHOCYTES 25.1 %; LYMPHOCYTES ABSOLUTE 2.12 10/3/uL (0.67-4.30); MEAN CORPUS HGB CONC 32.5 g/dL (32.0-36.0); MEAN CORPUSCULAR HEMOGLOB 28.6 pg (26.0-34.0); MEAN CORPUSCULAR VOLUME 88.2 fL (80-100); MONOCYTES 7.3 %; MONOCYTES ABSOLUTE 0.62 10/3/uL (0.21-1.20); NEUTROPHILS 60.9 %; NEUTROPHILS ABSOLUTE 5.14 10/3/uL (2.02-8.40); PLATELET COUNT 343 10/3/uL (150-400); RBC DISTRIBUTION WIDTH 15.7 % (12.0-16.0); RED CELL COUNT 3.98 10/6/uL (4.0-5.6); WHITE BLOOD CELLS 8.4 10/3/uL (4.5-10.5)
[2017-01-18 15:18] LABS: MANUAL DIFF NO %
[2017-01-18 15:29] LABS: CALCIUM, SERUM 8.6 MG/DL (8.5-10.4); CHLORIDE, SERUM 105 MMOL/L (96-112); CO2 (CARBON DIOXIDE) 25 MMOL/L (24-34); CREATININE 0.56 MG/DL (0.55-1.02); GFR AFRICAN AMERICAN 135 ML/MIN (>=60); GFR NON AFRICAN AMERICAN 117 ML/MIN (>=60); GLUCOSE, SERUM 158 MG/DL (60-99); POTASSIUM, SERUM 3.6 MMOL/L (3.5-5.3); SODIUM, SERUM 140 MMOL/L (135-148)
[2017-01-18 15:30] LABS: BUN (BLOOD UREA NITROGEN) 8 MG/DL (6-23)
[2017-01-19] MEDS ORDERED: CLORTIMAZOLE (11:14)
[2017-01-19] MEDS ORDERED: OXYIR5 MG PO (11:32)
[2017-05-03] MEDS ORDERED: FISH-EPA1000 MG PO (22:14)
[2017-05-03] MEDS ORDERED: PROTONIX PO (22:14)
[2017-05-03] MEDS ORDERED: SINGULAIR1 PO (22:15)
[2017-05-03] MEDS ORDERED: ABILIFY20 MG PO (22:15)
[2017-05-03] MEDS ORDERED: ZANTAC300 MG PO (22:15)
[2017-05-03] MEDS ORDERED: BYSTOLIC10 MG PO (22:15)
[2017-05-03] MEDS ORDERED: PLAVIX PO (22:15)
[2017-05-03] MEDS ORDERED: PAXIL30 MG PO (22:15)
[2017-05-03] MEDS ORDERED: ZOCOR20 PO (22:16)
[2017-05-03] MEDS ORDERED: LOFIB160 PO (22:16)
[2017-05-03] MEDS ORDERED: RESTORIL30 MG PO (22:16)
[2017-05-03] MEDS ORDERED: ADDERALL30 MG PO (22:16)
[2017-05-03] MEDS ORDERED: NEUR800 PO (22:16)
[2017-05-03] MEDS ORDERED: XANAX2 MG PO (22:17)
[2017-05-03] MEDS ORDERED: TOPAMAX100 PO (22:17)
[2017-05-03] MEDS ORDERED: POTASSIUM GLUC PO (22:17)
[2017-05-03] MEDS ORDERED: HUMALOG SC (22:17)
[2017-05-03] MEDS ORDERED: DIFLUCAN50 MG PO (22:18)
[2017-05-03] MEDS ORDERED: LEVEMIR SC (22:18)
[2017-05-03] MEDS ORDERED: MAXALTODT1 PO (22:18)
[2017-05-03] MEDS ORDERED: FIORICET 50-301 EACH PO (22:19)
[2017-05-03] MEDS ORDERED: PR25 PO (22:19)
[2017-05-03] MEDS ORDERED: LEVAQUIN750 MG PO (22:19)
[2017-05-03] MEDS ORDERED: VITD PO (23:32)
[2017-05-10] MEDS ORDERED: OXYCOD PO (12:58)
== END 2017-01-19 20:38 | disposition home or self-care (01) | DRG 602 ==
LOC: 1SO 02:32
PROVIDERS: Hospitalist; Internal Medicine Pulmonary Disease
PROC: 02HV33Z Insertion of Infusion Device into Superior Vena Cava, Percutaneous Approach (ICD-10-PCS; principal; 2017-01-14)
PROC: 4A02X4A Measurement of Cardiac Electrical Activity, Guidance, External Approach (ICD-10-PCS; 2017-01-14)
DX: L03.115 Cellulitis of right lower limb (principal); G92 Toxic encephalopathy; B37.89 Other sites of candidiasis; Z68.43 Body mass index [BMI] 50.0-59.9, adult; E11.42 Type 2 diabetes mellitus with diabetic polyneuropathy; G60.0 Hereditary motor and sensory neuropathy; E11.65 Type 2 diabetes mellitus with hyperglycemia; L03.116 Cellulitis of left lower limb; E66.9 Obesity, unspecified; S90.32XA Contusion of left foot, initial encounter; G47.33 Obstructive sleep apnea (adult) (pediatric); S90.31XA Contusion of right foot, initial encounter; G89.29 Other chronic pain; I10 Essential (primary) hypertension; N31.9 Neuromuscular dysfunction of bladder, unspecified; Z91.81 History of falling; F31.9 Bipolar disorder, unspecified; F44.4 Conversion disorder with motor symptom or deficit; F90.1 Attention-deficit hyperactivity disorder, predominantly hyperactive type; F41.1 Generalized anxiety disorder; K58.9 Irritable bowel syndrome, unspecified; E11.621 Type 2 diabetes mellitus with foot ulcer; F17.210 Nicotine dependence, cigarettes, uncomplicated; S00.83XA Contusion of other part of head, initial encounter; T42.75XA Adverse effect of unspecified antiepileptic and sedative-hypnotic drugs, initial encounter; Z99.3 Dependence on wheelchair; Z79.4 Long term (current) use of insulin; Z79.02 Long term (current) use of antithrombotics/antiplatelets; Z79.899 Other long term (current) drug therapy; Z86.718 Personal history of other venous thrombosis and embolism; Z86.14 Personal history of Methicillin resistant Staphylococcus aureus infection; Z87.440 Personal history of urinary (tract) infections; Z88.1 Allergy status to other antibiotic agents; Z88.2 Allergy status to sulfonamides; Z88.0 Allergy status to penicillin
CPT/HCPCS: 36569; 80048; 80053; 81001; 82570; 82962; 83605; 83615; 83735; 84100; 84145; 84156; 85025; 85652; 86140; 87040; 87086; 93970; A9270-GY; C1751; J0878; J1170; J1200